=== PATIENT | female | born 1990 | race Caucasian/White ===

== ENCOUNTER 2016-12-28 16:07 | Emergency (ER) | payer SELFPAY ==
[2016-12-28 16:16] VITALS: BP 116/64; BMI 26.4
[2016-12-28] MEDS ORDERED: METOCLOPRAMIDE HCL INJECTION 10 MG/2 ML VIAL IVPB ONE (17:09)
[2016-12-28] MEDS ORDERED: KETOROLAC TROMETHAMINE 30 MG/1 ML VIAL IVPUSH ONE (17:09)
[2016-12-28] MEDS ORDERED: diphenhydrAMINE HCL 25 MG CAPSULE (FP) PO ONE ×2 (17:09→18:17)
[2016-12-28] MEDS ORDERED: SODIUM CHLORIDE 1,000 ML IV STA (17:24)
--- NOTE | 2016-12-28 17:47 | PDOC ---
History of Present Illness - General Chief Complaint: Allergic Reaction Stated Complaint: RASH Time Seen by Provider: 12/28/16 16:25 History Source: Patient - History of Present Illness Timing/Duration: reports: other Severity: reports: moderate Associated Symptoms: reports: earache, fever/chills, headache. denies: chest pain/soreness, cough, facial pain, nasal congestion, shortness of breath, sore throat Past History - Past Medical History Allergies/Adverse Reactions: Allergies Allergy/AdvReac Type Severity Reaction Status Date / Time No Known Allergies Allergy Verified 12/28/16 16:12 Home Medications: Ambulatory Orders Ibuprofen [Motrin -] 600 mg PO TID #21 tablet 12/28/16 Other medical history: DENIES. - Psycho/Social/Smoking Cessation Hx Suicidal Ideation: No Smoking History: Never smoked Review of Systems - Review of Systems Constitutional: Yes: Fever, Malaise HEENTM: Yes: Ear Pain. No: Throat Pain Respiratory: No: Cough, Shortness of Breath ABD/GI: No: Diarrhea, Nausea, Vomiting : No: Dysuria Neurological: Yes: Headache. No: Dizziness *Physical Exam - Vital Signs Last Vital Signs Temp Pulse Resp BP Pulse Ox 100.2 F H 87 19 116/64 99 12/28/16 16:12 12/28/16 16:12 12/28/16 16:12 12/28/16 16:12 12/28/16 16:12 - Physical Exam Comments: 12/28/16 17:52 appears uncomfortable, crying in ED 12/28/16 20:23 General Appearance: Yes: Appropriately Dressed HEENT: positive: Normal ENT Inspection, TMs Normal, Pharynx Normal. negative: Scleral Icterus (R), Scleral Icterus (L) Neck: positive: Supple. negative: Lymphadenopathy (R), Lymphadenopathy (L), Rigidity Respiratory/Chest: positive: Lungs Clear, Normal Breath Sounds. negative: Respiratory Distress Cardiovascular: positive: Regular Rate, S1, S2 Gastrointestinal/Abdominal: positive: Soft. negative: Tender Integumentary: positive: Dry, Warm, Rash (coalescent erythematous papular lesions, mms in size, to neck and trunk and proximal inner thighs) Neurologic: positive: Fully Oriented, Alert, Normal Mood/Affect, Motor Strength 5/5 ED Treatment Course - LABORATORY CBC & Chemistry Diagram: 12/28/16 17:22 07/06/17 17:22 Medical Decision Making - Medical Decision Making 12/28/16 17:42 Patient is a 26-year-old healthy female who presents with rash w/ malaise, severe headache and fever. Patient reports that she initially noticed a rash 3 days ago. Rash located to inner thighs bilaterally and torso. Rash became pruritic yesterday. This a.m awoke with malaise, severe headache and low-grade fever. Also reports right ear pain. Denies sore throat, cough, SOB, CP, dizziness, visual changes, neck pain, photophobia, AMS, nausea, vomiting or diarrhea. No sick contacts or recent travel. Denies any recent insect bite See exam Viral syndrome x 3 days Pt ill appearing w/ low grade fever and non-specific dermatitis, exam otherwise unremarkable No s/o meningitis as d/w Dr Paiz who also evaluated pt in [facility] -supportive tx -labs -reassess 12/28/16 20:23 12/28/16 20:23 12/28/16 21:42 Labs unremarkable in ED. Patient reports feeling significantly better s/p meds. Rpt temp 98.9 as per [employer] [facility]. Will dc with supportive treatment and strict return precautions 12/28/16 21:46 *DC/Admit/Observation/Transfer Diagnosis at time of Disposition: Viral syndrome - Discharge Dispostion Disposition: HOME Condition at time of disposition: Improved - Prescriptions Prescriptions: Ibuprofen [Motrin -] 600 mg PO TID #21 tablet - Patient Instructions Printed Discharge Instructions: DI for Viral Syndrome Additional Instructions: Your labs were all normal. You most likely have a viral syndrome. Rest, maintain adequate hydration and take motrin as needed for pain/fever. Please return for worsening of symptoms such as persistent headache, vomiting, severe neck stiffness, persistent fever, etc
[2016-12-28 18:01] LABS: BASOPHIL 0.6 % (0-2.0); MCH 31.1 pg (25.7-33.7); MCHC 33.5 g/dl (32.0-36.0); MEAN CELL VOLUME 92.6 fl (80-96); MEAN PLT VOLUME 11.7 fl (7.5-11.1); NEUTROPHILS 68.2 % (42.8-82.8); PLATELET COUNT 148 K/MM3 (134-434); WHITE BLOOD COUNT 4.7 K/mm3 (4.0-10.0)
[2016-12-28 18:04] LABS: ALBUMIN 4.4 g/dl (3.4-5.0); ALK PHOS 110 U/L (45-117); ANION GAP 8 (8-16); BILIRUBIN,TOTAL 0.7 mg/dL (0.2-1.0); CALCIUM 8.5 mg/dL (8.5-10.1); CO2 29 mmol/L (21-32); CREATININE 0.8 mg/dL (0.55-1.02); GLUCOSE,RANDOM 94 mg/dL (74-106); SGOT/AST 28 U/L (15-37); SGPT/ALT 30 U/L (12-78); TOT PROT 8.2 g/dl (6.4-8.2)
[2016-12-28] MEDS ORDERED: ACETAMINOPHEN 325 MG TABLET (FP) PO ONE (18:37)
[2016-12-28 18:38] LABS: URINE APPEARANCE CLEAR; URINE BILIRUBIN NEGATIVE (NEGATIVE); URINE BLOOD NEGATIVE (NEGATIVE); URINE COLOR LT. YELLOW; URINE GLUCOSE (UA) NEGATIVE (NEGATIVE); URINE KETONE NEGATIVE (NEGATIVE); URINE LEUK ESTERASE NEGATIVE (NEGATIVE); URINE NITRITE NEGATIVE (NEGATIVE); URINE PROTEIN NEGATIVE (NEGATIVE); URINE UROBILINOGEN 0.2 E.U/dl E.U./dl (0.2-1.0)
[2016-12-28] MEDS ORDERED: ACETAMINOPHEN 325 MG TABLET (FP) ONE (18:41)
[2016-12-28] MEDS ORDERED: KETOROLAC TROMETHAMINE 30 MG/1 ML VIAL ONE (18:44)
[2016-12-28] MEDS ORDERED: METOCLOPRAMIDE HCL INJECTION 10 MG/2 ML VIAL ONE (18:44)
[2016-12-28 19:38] LABS: PH,URINE 6.5 (5.0-8.0)
[2016-12-28 20:09] VITALS: PULSE 81
[2016-12-28] MEDS ORDERED: IBUPROFEN 400 MG TABLET (FP) PO ONE ×2 (20:12→20:30)
[2016-12-28 21:09] VITALS: TEMP 98.9
== END 2016-12-28 21:53 | disposition home or self-care (01) ==
LOC: JERFT 16:07
PROC: 3E0337Z Introduction of Electrolytic and Water Balance Substance into Peripheral Vein, Percutaneous Approach (ICD-10-PCS; principal; 2016-12-28)
PROC: 3E0333Z Introduction of Anti-inflammatory into Peripheral Vein, Percutaneous Approach (ICD-10-PCS; 2016-12-28)
PROC: 3E033GC Introduction of Other Therapeutic Substance into Peripheral Vein, Percutaneous Approach (ICD-10-PCS; 2016-12-28)
DX: B34.9 Viral infection, unspecified (principal)
CPT/HCPCS: 36415; 80053; 81003; 83605; 84703; 85025; 87040; 87070; 87430; 87804; 99281-25

== ENCOUNTER 2020-12-22 14:58 | Emergency (ER) | payer OTHER ==
[2020-12-22 15:05] VITALS: BP 118/75; PULSE 74; TEMP 97; BMI 29.2
== END 2020-12-22 17:10 | disposition home or self-care (01) ==
LOC: JERFT 14:58
DX: S82.831A Other fracture of upper and lower end of right fibula, initial encounter for closed fracture (principal)
CPT/HCPCS: 73610-TC-RT-FY; 73630-TC-RT-FY; 99284-25